=== PATIENT | female | born 1955 | race Caucasian/White ===

== ENCOUNTER 2019-12-15 21:30 | Emergency (ER) | payer MEDICARE ==
--- NOTE | 2019-12-15 22:22 | RADIOLOGY REPORT (SQ) ---
EXAM DESCRIPTION: XR CHEST 1 VIEW COMPLETED DATE/TME: 12/15/2019 21:40 CLINICAL HISTORY: SVT COMPARISON: None FINDINGS: Cardiac silhouette is within normal limits. EKG leads project over the chest. There is no focal parenchymal or pleural disease. There is no acute osseous process visualized. IMPRESSION: No evidence of acute cardiopulmonary disease.
[2019-12-15 22:30] LABS: ABSOLUTE EOSINOPHILS # (AUTO) 0.1 10^3/uL (0.0-0.6); ABSOLUTE LYMPHOCYTES (AUTO) 2.8 10^3/uL (0.5-4.7); ABSOLUTE MONOCYTES (AUTO) 0.8 10^3/uL (0.1-1.4); ABSOLUTE NEUT (AUTO) 4.4 10^3/uL (1.7-8.2); BASOPHILS % (AUTO) 0.4 % (0-2); EOSINOPHILS % (AUTO) 1.6 % (0-6); HEMATOCRIT 39.7 % (36.0-47.0); HEMOGLOBIN 13.8 g/dL (12.0-15.5); LYMPHOCYTES % (AUTO) 33.7 % (13-45); MEAN CORPUSCULAR HEMOGLOBIN 30.3 pg (27.0-33.4); MEAN CORPUSCULAR HGB CONC 34.9 g/dL (32.0-36.0); MEAN CORPUSCULAR VOLUME 87 fl (80-97); MONOCYTES % (AUTO) 10.2 % (3-13); PLATELET COUNT 189 10^3/uL (150-450); RED BLOOD COUNT 4.56 10^6/uL (3.72-5.28); RED CELL DISTRIBUTION WIDTH 12.9 % (11.5-14.0); SEGMENTED NEUTROPHILS % (AUTO) 54.1 % (42-78); TOTAL CELLS COUNTED % (AUTO) 100 %; WHITE BLOOD COUNT 8.2 10^3/uL (4.0-10.5)
[2019-12-15 22:49] LABS: ALBUMIN 4.3 g/dL (3.5-5.0); ALKALINE PHOSPHATASE 80 U/L (38-126); ANION GAP 9 (5-19); ASPARTATE AMINO TRANSFERASE 66 U/L (14-36); BILIRUBIN,TOTAL 0.4 mg/dL (0.2-1.3); BLOOD UREA NITROGEN 18 mg/dL (7-20); CALCIUM 8.9 mg/dL (8.4-10.2); CARBON DIOXIDE 26 mmol/L (22-30); CHLORIDE 100 mmol/L (98-107); GLUCOSE 85 mg/dL (75-110); POTASSIUM 3.9 mmol/L (3.6-5.0); TOTAL PROTEIN 7.1 g/dL (6.3-8.2)
--- NOTE | 2019-12-15 22:51 | ER Document Report ---
Entered by HAVEN CHAVIS SCRIBE 12/15/19 1353 Acting as scribe for:AWA LAYTON IV, MD ED General - General Chief Complaint: Irregular Pulse Stated Complaint: SHORTNESS OF BREATH Time Seen by Provider: 12/15/19 21:41 Primary Care Provider: JOSE ALEJANDRO DOMINGUEZ MD [NO LOCAL MD] - Follow up as needed Mode of Arrival: Medic Information source: Patient, Emergency Med Personnel Notes: This 64 year old female patient brought in by EMS presents to the ED today with complaints of sudden onset shortness of breath, dizziness, and palpitations that started around 1800 tonight. Patient states that she had her friend check her heart rate and blood pressure which were both elevated. She also states that the shortness of breath was worse with movement. EMS reports that the patient was SVT on their monitors with a heart rate in the 170s, so they administered 6 mg Adenosine IVP which converted the heart rate to sinus rhythm with a heart rate in the 70s. She reports a history of COPD, vasodepressor syncope, and "irregular heartbeat", but denies any other cardiac history. Denies chest pain and reports that all of her symptoms have resolved and that she feels better at this time. She notes that she was seen by her PCP yesterday for issues with her thinking, emotions, and mood changes and that she was advised to stop taking her Estradiol. TRAVEL OUTSIDE OF THE [place] IN LAST 30 DAYS: No - Related Data Allergies/Adverse Reactions: No Known Allergies Allergy (Verified 12/15/19 21:45) Past Medical History - General Information source: Patient, [facility] Records - Social History Smoking Status: Former Smoker Cigarette use (# per day): No Chew tobacco use (# tins/day): No Smoking Education Provided: No Frequency of alcohol use: None Drug Abuse: None Family History: Reviewed & Not Pertinent Patient has suicidal ideation: No Patient has homicidal ideation: No - Past Medical History Cardiac Medical History: Reports: Hx Hypertension Pulmonary Medical History: Reports: Hx Asthma, Hx Bronchitis, Hx COPD - ne bulizer, Hx Pneumonia Endocrine Medical History: Reports: Hx Hypothyroidism GI Medical History: Reports: Hx Gastroesophageal Reflux Disease Psychiatric Medical History: Reports: Hx Depression Past Surgical History: Reports: Hx Appendectomy, Hx Tubal Ligation - Immunizations Hx Diphtheria, Pertussis, Tetanus Vaccination: Yes Review of Systems - Review of Systems Constitutional: No symptoms reported EENT: No symptoms reported Cardiovascular: See HPI, Palpitations, Dizziness. denies: Chest pain Respiratory: See HPI, Short of breath Gastrointestinal: No symptoms reported Genitourinary: No symptoms reported Female Genitourinary: No symptoms reported Musculoskeletal: No symptoms reported Skin: No symptoms reported Hematologic/Lymphatic: No symptoms reported Neurological/Psychological: No symptoms reported -: Yes All other systems reviewed and negative Physical Exam - Vital signs Vitals: Temp Pulse Resp BP Pulse Ox 98.3 F 93 12 134/72 H 97 12/15/19 21:31 12/15/19 21:31 12/15/19 21:31 12/15/19 21:31 12/15/19 21:31 - General General appearance: Appears well, Alert In distress: None - HEENT Head: Normocephalic, Atraumatic Eyes: Normal Pupils: PERRL - Respiratory Respiratory status: No respiratory distress Chest status: Nontender Breath sounds: Normal Chest palpation: Normal - Cardiovascular Rhythm: Regular Heart sounds: Normal auscultation Murmur: No Friction rub: No Gallop: None auscultated - Abdominal Inspection: Normal Distension: No distension Bowel sounds: Normal Tenderness: Nontender - Abdomen soft Organomegaly: No organomegaly - Back Back: Normal, Nontender - Extremities General upper extremity: Normal inspection General lower extremity: Normal inspection - Neurological Neuro grossly intact: Yes - Psychological Associated symptoms: Normal affect, Normal mood - Skin Skin Temperature: Warm Skin Moisture: Dry Skin Color: Normal Course - Re-evaluation Re-evalutation: 12/16/19 00:10 Patient is sitting up in bed and in no acute distress. Patient is alert and oriented x4. Results of ED MSE discussed with patient. All questions were answered prior to discharge. Emergency signs and symptoms, reasons to return to the emergency department discussed with patient. Diagnoses of SVT and orthostatic hypotension discussed with patient. This MD offered to refer the patient to a assessment clinician. Patient declined this offer stating that she would just as soon follow-up with her PCP, Dr. Flanagan, first of the week and get his recommendation on further evaluation. - Vital Signs Vital signs: Temp Pulse Resp BP Pulse Ox 98.3 F 76 16 128/67 H 97 12/15/19 21:31 12/15/19 22:37 12/15/19 22:02 12/15/19 22:37 12/15/19 22:02 - Laboratory Result Diagrams: 12/15/19 22:08 12/15/19 22:08 Laboratory results interpreted by me: 12/15/19 12/15/19 22:08 22:08 Sodium 135.4 L AST 66 H ALT 75 H TSH 0.06 L - EKG Interpretation by Me Additional EKG results interpreted by me: 12/15/19 23:47 EKG obtained on 12/15/2019 at 2138 hrs. was interpreted by this MD. Findings: Normal sinus rhythm, rate 90, normal axis, P waves proceed QRS complexes, QRS complexes appear narrow, there are no obvious patterns of ST segment elevation or depression present to suggest acute myocardial ischemia or infarction. Impression: Normal sinus rhythm with nonspecific ST segments. Discharge - Discharge Clinical Impression: SVT (supraventricular tachycardia), Orthostatic hypotension Condition: Good Disposition: HOME, SELF-CARE Additional Instructions: Return to the Emergency Department without delay if any worse. Follow-up with your regular primary care provider on 12/18/2019. HOME CARE INSTRUCTIONS & INFORMATION: Thank you for choosing us for your medical needs. We hope you're satisfied with the care you received. After you leave, you must properly care for your problem and, at the same time, observe its progress. Any condition can change. Some illnesses can change rapidly over hours or days. If your condition worsens, return to the Emergency Department or see your physician promptly. ABOUT YOUR X-RAYS AND EKG'S: If you had an EKG or X-rays taken, they have been read by the Emergency Physician. The X-rays and EKG's will also be read by a Radiologist or Rv Servicer within 24 hours. If discrepancies are noted, you will be notified by telephone. Please be certain the ED has a correct telephone number & address where you can be reached. Also, realize that some fractures or abnormalities do not show up on initial X-rays. If your symptoms continue, see your physician. ABOUT YOUR LABORATORY TEST: If you had laboratory tests, the results have been reviewed by the Emergency Physician. Some test results (for example cultures) may not be available for several days. You will be contacted if any test result shows you need additional treatment. Please be certain the ED has a correct telephone number and address where you can be reached. ABOUT YOUR MEDICATIONS: You will receive instructions on how to take your medicine on the prescription label you receive. Additional information may be provided by the Pharmacy. If you have questions afterwards, call the ED for clarification or further instructions. Some prescribed medications may cause drowsiness. Do not perform tasks such as driving a car or operating machinery without consulting your Pharmacist. If you feel you need a refill of pain medication, your condition will need re-evaluation. Please do not call for a refill of any medication. ABOUT YOUR SIGNATURE: Signature of this document acknowledges to followin. Understanding that you received emergency treatment and that you may be released before al medical problems are known or treated. Please be certain the ED has a correct phone number & address where you can be reached. 2. Acknowledgement that you will arrange for follow-up care as recommended. 3. Authorization for the Emergency Physician to provide information to your follow-up Physician in order to maximize your care. AT ANY TIME, IF YOUR SYMPTOMS CHANGE SIGNIFICANTLY OR WORSEN OR YOU DEVELOP NEW SYMPTOMS, RETURN TO THE EMERGENCY DEPARTMENT IMMEDIATELY FOR RE-EVALUATION. OUR GOAL IS TO PROVIDE EXCELLENT MEDICAL CARE! WE HOPE THAT WE HAVE MET YOUR EXPECTATIONS DURING YOUR EMERGENCY DEPARTMENT VISIT AND THAT YOU FEEL YOU HAVE RECEIVED EXCELLENT CARE! Orthostatic Hypotension You have orthostatic hypotension. Your blood pressure goes down when you stand up. Symptoms can include dizziness, transient loss of vision, ringing in the ears, nausea, and fainting. At this time, there's no evidence of a serious problem requiring hospitalization. Orthostatic hypotension can be caused by dehydration, poor nutrition, over- exercise, or medication. For some people, orthostatic hypotension is an ongoing problem, and no cause can be found. We usually treat orthostatic hypotension with fluids. We look for a treatable cause. If no cause was found, you should get enough rest, exercise m oderately, and get plenty of fluids. When you feel the first symptoms suggesting you might faint, sit or squat down as quickly as you can. If symptoms don't go away quickly, lie down. Call the doctor or return if you are worsening or if new symptoms develop. Paroxysmal Supraventricular Tachycardia You have had an episode of Paroxysmal Supraventricular (Atrial) Tachycardia (PSVT or PAT). This abnormally rapid heartbeat is caused by a "short circuit" in the electrical system of the heart. It is not dangerous unless other heart disease is present. These attacks of PAT may occur occasionally for years. When an attack occurs, it can sometimes be stopped without medication. Try holding your breath very tightly for a few seconds, several times. Try pressure on the eyeballs or put an ice-cold wet cloth on your face. If these maneuvers are not successful, come in for emergency care. If attacks happen frequently, medication can be given to prevent them, but it must be taken on a daily basis. I personally performed the services described in the documentation, reviewed and edited the documentation which was dictated to the scribe in my presence, and it accurately records my words and actions.
[2019-12-15 23:07] LABS: FREE T3 4.06 pg/mL (2.77-5.27); FREE T4 (FREE THYROXINE) 1.6 ng/dL (0.78-2.19)
[2019-12-15 23:20] LABS: THYROID STIMULATING HORMONE 0.06 uIU/mL (0.47-4.68)
[2019-12-15] MEDS ORDERED: NORMAL SALINE 500 ML IV ONE (23:44)
[2019-12-16 01:19] VITALS: BP 132/69
--- NOTE | 2019-12-16 09:24 | EKG REPORT ---
SEVERITY:- NORMAL ECG - SINUS RHYTHM : Confirmed by: Jeni Kasper MD 16-Dec-2019 09:23:22
== END 2019-12-16 01:33 | disposition home or self-care (01) ==
LOC: ER 21:30
DX: I47.1 Supraventricular tachycardia (principal); I95.1 Orthostatic hypotension; I10 Essential (primary) hypertension; R06.02 Shortness of breath; R42 Dizziness and giddiness; R00.2 Palpitations; J44.9 Chronic obstructive pulmonary disease, unspecified; Z87.891 Personal history of nicotine dependence
CPT/HCPCS: 93005; 99284; 96360; 36415; 84439; 83735; 84443; 85025; 80053; 84484; 84481; 71045; 93010; J7040